=== PATIENT | female | born 1965 | race Caucasian/White ===

== ENCOUNTER 2022-04-04 06:33 | Emergency (ER) | payer MEDICAID ==
[~2022-04-04] VITALS: Ht 162.6 cm; Wt 60.0 kg
[2022-04-04] MEDS ORDERED: ONDANSETRON 4MG ODT PO ONE (07:15)
[2022-04-04 08:04] LABS: BASOPHILS % 1.1 % (0.0-2.0); EOSINOPHILS % 0.8 % (0.0-5.0); HEMATOCRIT. 45.4 % (36.0-48.0); HEMOGLOBIN. 15.3 g/dL (12.0-16.0); LYMPHOCYTES % 25.9 % (20.0-50.0); MEAN CORPUSCULAR HEMOGLOBIN 28.2 pg (28.0-32.0); MEAN CORPUSCULAR VOLUME 83.7 fL (81.0-99.0); MONOCYTES % 5.3 % (2.0-8.0); NEUTROPHILS % 66.9 % (40.0-76.0); PLATELET 211 x1000/uL (130-400); RED BLOOD CELL COUNT 5.43 mill/uL (4.2-5.4)
[2022-04-04 08:17] LABS: CHLORIDE 101 mEq/L (98-107)
[2022-04-04 12:07] VITALS: BP 123/73
== END 2022-04-04 12:53 | disposition home or self-care (01) ==
LOC: EDSEX 06:33 → ER 06:33
DX: R42 Dizziness and giddiness (principal); E11.9 Type 2 diabetes mellitus without complications; I10 Essential (primary) hypertension
CPT/HCPCS: 36415; 80053; 82962; 85025; 93005; 99285; Q0162

== ENCOUNTER 2022-04-06 09:37 | Emergency (ER) | payer MEDICAID, OTHER ==
[~2022-04-06] VITALS: Ht 165.1 cm; Wt 77.0 kg
[2022-04-06 09:43] VITALS: BP 138/78
== END 2022-04-06 14:25 | disposition left against medical advice (07) ==
LOC: ER 09:37
DX: Z53.21 Procedure and treatment not carried out due to patient leaving prior to being seen by health care provider (principal); E11.9 Type 2 diabetes mellitus without complications; I10 Essential (primary) hypertension
CPT/HCPCS: 82962; 93005